=== PATIENT | male | born 1990 | race American Indian/Alaskan Native ===

== ENCOUNTER 2019-01-05 16:21 | Emergency (ER) | payer MEDICARE ==
[2019-01-05 16:36] VITALS: RESP 16; TEMP 98.5
[2019-01-05] MEDS ORDERED: Sodium Chloride 0.9% 1,000 ML IV ONE (17:18)
[2019-01-05] MEDS ORDERED: Sodium Chloride 0.9% 1,000 ML ONE (17:34)
--- NOTE | 2019-01-05 17:54 | RAD ---
Date of service: 01/05/2019 PROCEDURE: Radiographs of the chest and abdomen (obstructive series) HISTORY: abd pain COMPARISON: No prior. TECHNIQUE: AP radiograph of the chest, with upright and supine radiographs of the abdomen. FINDINGS: CHEST: Lungs: Clear. Cardiovascular: Normal size heart. No pulmonary vascular congestion. No aortic atherosclerotic calcification present Pleura: No pleural fluid. No pneumothorax. Other findings: None. ABDOMEN AND PELVIS: Bowel: Mild constipation, otherwise unremarkable bowel gas pattern. No evidence of mechanical obstruction. Free air: None. Bones: Unremarkable. Other findings: None. IMPRESSION: Mild constipation, otherwise radiographs of chest and abdomen. No evidence of mechanical bowel obstruction.
[2019-01-05 18:21] LABS: BASO # 0.1 K/uL (0.0-0.2); BASO % 1.3 % (0.0-2.0); EOS # 0.2 K/uL (0.0-0.7); EOS % 2.8 % (0.0-4.0); HEMOGLOBIN 15.2 g/dL (12.0-18.0); LYMPH # 2.1 K/uL (1.0-4.3); LYMPH % 26.7 % (20.0-40.0); MEAN CELL VOLUME 89.9 fL (80.0-94.0); MEAN CORPUSCULAR HEMOGLOBIN 28.9 pg (27.0-31.0); MEAN CORPUSCULAR HGB CONC 32.2 g/dL (33.0-37.0); MEAN PLATELET VOLUME 9.8 fL (7.2-11.7); MONO # 0.6 K/uL (0.0-0.8); MONO % 8.1 % (0.0-10.0); NEUT # 4.8 K/uL (1.8-7.0); NEUT % 61.1 % (50.0-75.0); NRBC % 0.1 % (0.0-2.0); RBC 5.26 Mil/uL (4.40-5.90); WHITE BLOOD COUNT 7.9 K/uL (4.8-10.8)
[2019-01-05 19:08] LABS: ALB/GLOB RATIO 1.7 (1.0-2.1); ALBUMIN 4.3 g/dL (3.5-5.0); ALT/SGPT 41 U/L (21-72); AST/SGOT 28 U/L (17-59); BLOOD UREA NITROGEN 10 mg/dL (9-20); CALCIUM 8.9 mg/dl (8.6-10.4); GFR NON-AFRICAN AMERICAN > 60; LIPASE 78 U/L (23-300)
--- NOTE | 2019-01-05 19:18 | C.PDOC ---
History Of Present Illness 28 y/o male comes in complaining of constipation and hard stools with occasional blood streak. Patient is chronically bed bound and on wheelchair due to cerebral palsy since . Patient denies any nausea, vomiting, fever, chills, or other symptoms. Time Seen by Provider: 01/05/19 16:55 Chief Complaint (Nursing): GI Problem History Per: Patient History/Exam Limitations: no limitations Onset/Duration Of Symptoms: Days Current Symptoms Are (Timing): Still Present Past Medical History Reviewed: Historical Data, Nursing Documentation, Vital Signs Vital Signs: Last Vital Signs Temp 98.5 F 01/05/19 16:26 Pulse 86 01/05/19 16:26 Resp 16 01/05/19 16:26 BP 150/83 01/05/19 16:26 Pulse Ox 100 01/05/19 16:26 Family History: States: No Known Family Hx - Social History Hx Alcohol Use: Yes Hx Substance Use: No - Immunization History Hx Tetanus Toxoid Vaccination: No Hx Influenza Vaccination: No Hx Pneumococcal Vaccination: No Review Of Systems Except As Marked, All Systems Reviewed And Found Negative. Constitutional: Negative for: Fever, Chills Gastrointestinal: Positive for: Constipation, Other (Hard stool with occasional blood streaks). Negative for: Nausea, Vomiting Musculoskeletal: Negative for: Back Pain Physical Exam - Physical Exam Appears: Non-toxic, No Acute Distress, Other (Obese black male) Skin: Warm, Dry Head: Atraumatic, Normacephalic Eye(s): bilateral: PERRL, EOMI Oral Mucosa: Moist Neck: Supple Cardiovascular: Rhythm Regular, No Murmur Respiratory: Normal Breath Sounds, No Rales, No Rhonchi, No Wheezing Gastrointestinal/Abdominal: Soft, No Tenderness, Other (Obese, dull to percussi on throughout) Rectal: Hemorrhoids (small external anal hemorrhoids with fresh blood at 6 o clock position measuring 0.5cm) Extremity: No Swelling Neurological/Psych: Oriented x3, Normal Speech ED Course And Treatment - Laboratory Results Result Diagrams: 01/05/19 18:17 01/05/19 18:45 Lab Results: Total Bilirubin 0.7 mg/dL (0.2-1.3) 01/05/19 18:45 AST 28 U/L (17-59) 01/05/19 18:45 ALT 41 U/L (21-72) 01/05/19 18:45 Alkaline Phosphatase 62 U/L (38-126) 01/05/19 18:45 Total Protein 6.8 g/dL (6.3-8.3) 01/05/19 18:45 Albumin 4.3 g/dL (3.5-5.0) 01/05/19 18:45 Globulin 2.5 gm/dL (2.2-3.9) 01/05/19 18:45 Albumin/Globulin Ratio 1.7 (1.0-2.1) 01/05/19 18:45 Lipase 78 U/L (23-300) 01/05/19 18:45 Lab Interpretation: Normal O2 Sat by Pulse Oximetry: 95 (RA) Pulse Ox Interpretation: Normal - Radiology CXR: Interpreted by Me CXR Interpretation: Yes: No Acute Disease - Other Rad abd x 2 X-Ray: Interpreted by Me (+ moderate stool/gas throughout) Obstructive series X-Ray: Read By Radiologist Interpretation: IMPRESSION: Mild constipation, otherwise radiographs of chest and abdomen. No evidence of mechanical bowel obstruction. Reevaluation Time: 19:16 Reassessment Condition: Improved Medical Decision Making Medical Decision Making: Plan: --Labs --Obstructive series --Magnesium Citrate 300 ml PO --IV fluids 1L --Toradol 30 mg IVP small anal hemorroid prob provoking scant BRBPR chronically secondary to constipating diet and chronically bedbound/wheelchair bound state due to MS diet and occasional laxatives educated. Disposition Doctor Will See Patient In The: Office Counseled Patient/Family Regarding: Studies Performed, Diagnosis - Disposition Referrals: [facility] [Outside] [facility] [place] [Outside] [facility] [Outside] [place] [employer] [facility] [Outside] Disposition: HOME/ ROUTINE Disposition Time: 19:17 Condition: GOOD Additional Instructions: drink laxative now and re-evalute your abd discomforts after a few good bowel movements diet changes- more fresh fruits and vegetables occasional laxatives as needed Refer for GI eval: consider anal eval/colonoscopy Instructions: Hemorrhoids, Constipation in Adults Forms: [facility] ([place]) - Clinical Impression Clinical Impression: Constipation, Hemorrhoids without prolapse outside of anal canal - Scribe Statement The provider has reviewed the documentation as recorded by the Tabby Saucedo Provider Attestation: All medical record entries made by the Scribe were at my direction and personally dictated by me. I have reviewed the chart and agree that the record accurately reflects my personal performance of the history, physical exam, medical decision making, and the department course for this patient. I have also personally directed, reviewed, and agree with the discharge instructions and disposition.
[2019-01-05] MEDS ORDERED: Magnesium Citrate Oral SOL (300 ml) PO ONE (19:19)
[2019-01-05 19:39] VITALS: BP 135/92; PULSE 75
[2019-01-05 19:52] VITALS: O2SAT 95
== END 2019-01-05 19:39 | disposition home or self-care (01) ==
LOC: C.ER 16:21
DX: K64.9 Unspecified hemorrhoids (principal); K59.00 Constipation, unspecified
CPT/HCPCS: 74022; 80053; 83690; 85025; 96374; 99284; J1885; J7030